=== PATIENT | male | born 1945 | race Caucasian/White ===

== ENCOUNTER 2022-11-06 11:38 | Emergency (ER) | payer MEDICARE, OTHER ==
[~2022-11-06] VITALS: Ht 177 cm; Wt 81.0 kg
--- NOTE | 2022-11-06 12:12 | ED EENT ---
History of Present Illness General Chief Complaint: Dental Problems/Pain Stated Complaint: DENTAL PAIN Nursing Triage Note: PT PRESENTS TO ED FOR LUQ DENTAL PAIN. PER PT IT STARTED YESTERDAY. PER PT BELIEVES IT'S THE TOOTH THAT HAS A CROWN ON IT. PT WAS ADVISED TO REPORT TO ED FOR ASSESSMENT. MILD SWELLING NOTED. DENIES FEVERS AT HOME. PT AMB. TO TRIAGE WITHOUT DIFFICULTY. Source: patient Exam Limitations: no limitations History of Present Illness Date Seen by Provider: Nov 06, 2022 Time Seen by Provider: 12:00 Initial Comments 76-year-old male presents the emergency room today for left-sided facial pain and swelling. He believes this is related to a crown on his left upper dentition which has been causing irritation of the last 2 or 3 days. He noticed swelling today which was his main concern. No fevers chills nausea or vomiting. He has been trying Aleve without much relief. No difficulty breathing or swallowing. No submandibular pain or swelling. Allergies and Home Medications Patient Home Medication List Home Medication List Reviewed: Yes Hydrocodone Bit/Acetaminophen (HYDROcodone/APAP 5 MG/325 MG TAB) 1 Tab Tab, 1 TAB PO Q6H Prescribed by: KELLIE MONTES DE OCA MD on 11/06/22 1214 Penicillin V Potassium (Penicillin V Potassium) 500 Mg Tablet, 500 MG PO TID Prescribed by: KELLIE MONTES DE OCA MD on 11/06/22 1213 Review of Systems Review of Systems Constitutional: no symptoms reported Eyes: No Symptoms Reported Ears: No Symptoms Reported Nose: no symptoms reported Mouth: other (Left upper dental pain, left facial swelling) Throat: no symptoms reported Respiratory: no symptoms reported Cardiovascular: no symptoms reported Gastrointestinal: no symptoms reported Musculoskeletal: no symptoms reported Skin: no symptoms reported Neurological: No Symptoms Reported Hematologic/Lymphatic: No Symptoms Reported Immunological/Allergic: no symptoms reported Past Ivkoagp-Xzbdlg-Mousnx Hx Patient Social History Tobacco Use?: No Substance use?: No Alcohol Use?: Yes Alcohol type: Beer Alcohol Frequency: Once in a while Immunizations Up To Date Influenza Vaccine Up-to-Date: Yes; Up-to-Date First/Initial COVID19 Vaccinat: 2019 Second COVID19 Vaccination Fernie: 2019 COVID19 Vaccine Pollution Control Technician: MODERNA Past Medical History Surgery/Hospitalization HX: PMH;DENIES. DENIES SURG. HX. Family Medical History Reviewed Nursing Family Hx No Pertinent Family Hx Physical Exam Vital Signs Vital Signs - First Documented 11/06/22 11:55 Temp 36.0 Pulse 61 Resp 18 B/P (MAP) 155/96 (115) Pulse Ox 97 O2 Delivery Room Air Height, Weight, BMI Height: '" Weight: lbs. oz. kg; 25.00 BMI Method: General Appearance: WD/WN, no apparent distress Eyes: bilateral eye normal inspection, bilateral eye PERRL, bilateral eye EOMI Ears: bilateral ear auricle normal, bilateral ear canal normal, bilateral ear TM normal Nose: normal inspection Mouth/Throat: other (Mild left-sided facial swelling. There is tenderness to palpation of the area of the crown of his left upper premolar area. There is no palpable abscess) Neck: non-tender, supple, normal inspection Cardiovascular: regular rate, rhythm, no murmur Respiratory: chest non-tender, lungs clear, normal breath sounds, no respiratory distress, no accessory muscle use Gastrointestinal: normal bowel sounds, non tender, soft, no organomegaly Neurologic/Psychiatric: alert, normal mood/affect, oriented x 3 Skin: normal color, warm/dry Progress/Results/Core Measures Results/Orders Vital Signs/I&O 11/06/22 11/06/22 11:55 12:18 Temp 36.0 36.0 Pulse 61 61 Resp 18 18 B/P (MAP) 155/96 (115) 155/96 Pulse Ox 97 97 O2 Delivery Room Air Room Air Blood Pressure Mean: 115 Departure Communication (Admissions) Patient is hemodynamically stable. No obvious drainable abscess. We will treat him conservatively with pain medication, antibiotics. No evidence for Mayra's angina, retropharyngeal or other abscess. Discharged in stable condition. Impression Primary Impression: Dental caries Disposition: 01 HOME, SELF-CARE Condition: Stable Departure-Patient Inst. Referrals: SARAH QUIGLEY MD (PCP/Family) Primary Care Physician Patient Instructions: Dental Pain (DC), Tooth Abscess (DC) Add. Discharge Instructions: Take the antibiotics as prescribed until they are gone with food. Increase your fluids at home, rest. Take the pain medication as needed. Do not drive or make important decisions while taking it as it may make you drowsy. Return to the emergency department for any severe concerns. Follow-up with your dentist for any nonemergent needs All discharge instructions reviewed with patient and/or family. Voiced understanding. Scripts Hydrocodone Bit/Acetaminophen (HYDROcodone/APAP 5 MG/325 MG TAB) 1 Tab Tab 1 TAB PO Q6H for Pain for 3 Days, #12 TAB Prov: KELLIE MONTES DE OCA DO 11/06/22 Penicillin V Potassium (Penicillin V Potassium) 500 Mg Tablet 500 MG PO TID for 7 Days, #21 TAB Prov: KELLIE MONTES DE OCA DO 11/06/22 KELLIE MONTES DE OCA DO Nov 06, 2022 12:12
[2022-11-06] MEDS ORDERED: PENI500T PO (12:13)
[2022-11-06] MEDS ORDERED: ACHD5005 PO (12:13)
[2022-11-06 12:18] VITALS: BP 155/96
== END 2022-11-06 12:18 | disposition home or self-care (01) ==
LOC: ER 11:42
DX: K02.9 Dental caries, unspecified (principal)
CPT/HCPCS: 99282